=== PATIENT | male | born 1950 | race Caucasian/White ===

== ENCOUNTER → 2016-09-16 | Outpatient (CLI) | payer OTHER ==
--- NOTE | 2016-09-16 10:59 | CT ---
Unenhanced CT Scan of the Chest Clinical History: 65-year-old male who had CT imaging of the neck on September 28, 2015 after sustaini ng a fall and was incidentally noted to have a 7 mm right upper lobe groundglass opacity. There is no prior history of malignancy or tobacco use. Technique: A multidetector unenhanced helical CT scan was obtained from the base of the neck inferior ly to the upper abdomen, reformatted at 1.50 and 4/3 mm increments, and reviewed at a variety of wind ow and level settings. Parasagittal and paracoronal reconstructed images are reviewed on the workstat ion. The DFOV is 37.6 cm. A dose reduction protocol was used. Comparison Study: CT angiography of the neck, which included the lung apices, dated September 28, 2015 . Findings: There has been no significant interval change in the 7 mm groundglass opacity seen in the a nterior right upper lobe on series 4 image 72 and on coronal series 6, image 60. According to Fleisch ner Society guidelines, for solitary pure ground-glass nodules greater than 5 mm (after an initial fo llow up CT at 3 months to confirm persistence), annual surveillance CT for a minimum of 3 years is re commended. There is a subpleural calcified granuloma in the superior segment of the right lower lobe noted on series 4, images 94-96. There are some minor dependent changes seen posteriorly. There is so me nodular subsegmental atelectasis versus scarring in the inferomedial right middle lobe. There is s ome atherosclerotic calcification of the LAD coronary artery. The heart size is normal. The pericardi um is normal. The thoracic aortic contour is normal. The osseous structures are age-appropriate, with no aggressive lesion. The visualized thyroid gland and base of the neck are unremarkable. The visual ized upper abdomen is also unremarkable. Impression: 1. There is a stable 7 mm ground-glass opacity in the right upper lobe. Annual surveillance is recomm ended for 3 years to assure stability, according to current Fleischner Society guidelines. 2. LAD coronary artery calcification. 3. Sequela of old granulomatous disease.
== END ==
LOC: FIMAGING 08:25
PROVIDERS: ATTEND Emergency Medicine
DX: R91.1 Solitary pulmonary nodule (principal); I25.10 Atherosclerotic heart disease of native coronary artery without angina pectoris; D71 Functional disorders of polymorphonuclear neutrophils

== ENCOUNTER 2017-11-23 12:26 | Day surgery (SDC) | payer OTHER ==
--- NOTE | 2017-11-23 12:49 | EDPHY ---
H & P Time Seen by Provider: 11/23/17 12:41 HPI/ROS: CHIEF COMPLAINT: Choked on a dental crown HISTORY OF PRESENT ILLNESS: Patient had a gold crown the came out 1 days ago. He was advised by his dentist to glue it back on and was eating an apple today in started gagging and choking, not sure if he swallowed it or aspirated. REVIEW OF SYSTEMS: Can't feel it in his esophagus sore throat. No vomiting or coughing and not short of breath. PAST MEDICAL HISTORY: Appendectomy, migraines, high cholesterol Social history: Nonsmoker General Appearance: Alert and conversant, cooperative. Alert, normal pharynx. No stridor or drooling. Breath sounds equal, normal voice. Emergency Department course/MDM: Chest x-ray ordered and reviewed with the patient at 1:[address] Shaw at 1:04 p.m., will come and see the patient for bronchoscopy. Soup at 11:00 a.m., banana and an apple at 1:00 p.m. 1315: per Dr. Shaw will do at 1600 due to recent oral intake; in ED until then. Smoking Status: Never smoked Constitutional: Initial Vital Signs Temperature (C) 36.6 C 11/23/17 12:27 Heart Rate 87 11/23/17 12:27 Respiratory Rate 16 11/23/17 12:27 Blood Pressure 135/77 H 11/23/17 12:27 O2 Sat (%) 95 11/23/17 12:27 O2 Delivery Mode Room Air Allergies/Adverse Reactions: No Known Allergies Allergy (Unverified 09/28/15 16:04) Home Medications: Medication Instructions Recorded Gabapentin 11/23/17 MDM/Departure - MDM Imaging Results: Imaging Impressions Chest X-Ray 11/23/17 12:46 Impression: Aspiration of the metallic gold crown into the cephalad aspect of the left lower lobe bronchus. Findings were discussed with PRASANNA AYERS MD at 12:59, on 11/23/2017. Imaging: Discussed imaging studies w/ order desk caller Radiologist, I viewed and interpreted images myself - Depart Disposition: To OP Cath/Surgery Clinical Impression: Foreign body aspiration Qualifiers: Encounter type: initial encounter Qualified Code(s): T17.900A - Unspecified foreign body in respiratory tract, part unspecified causing asphyxiation, initial encounter Condition: Good Referrals: Jinny Fernandez MD [Primary Care Provider] - As per Instructions
[2017-11-23] MEDS ORDERED: LIDOCAINE 2% JELLY 5 ML TUBE ONE (15:31)
[2017-11-23] MEDS ORDERED: LIDOCAINE 1% 300 MG/30 ML SDV ONE (15:32)
[2017-11-23] MEDS ORDERED: MIDAZOLAM 2 MG/2 ML VIAL ONE (15:32)
[2017-11-23] MEDS ORDERED: fentaNYL 100 MCG/2 ML INJ ONE (15:32)
[2017-11-23] MEDS ORDERED: ALBUTEROL 3 ML DEYVIAL ONE (15:38)
[2017-11-23] MEDS ORDERED: LIDOCAINE 4% 5 ML AMP IH ONE (15:45)
--- NOTE | 2017-11-23 16:56 | GCON ---
[f rep st] CONSULTATION EMERGENCY ROOM CHEST CONSULTATION DATE OF CONSULTATION: 11/23/2017 REASON FOR CONSULTATION: Aspiration. HISTORY OF PRESENT ILLNESS: The patient is a very pleasant 67-year-old white male, with past medical history of hypercholesterolemia and migraines. He presented to the emergency room after aspirating a crown. Apparently, it came loose, and patient was advised by the dentist to glue it back on. He w as eating an apple, started gagging and choking, and then subsequently aspirated the crown. Chest x- ray reveals it in the left lower lobe. Patient is currently without complaints. PAST MEDICAL HISTORY: Significant for migraines, hypercholesterolemia. PAST SURGICAL HISTORY: Appendectomy. ALLERGIES: None known to medications. SOCIAL HISTORY: No history of tobacco use. Infrequent alcohol use. FAMILY HISTORY: Noncontributory. REVIEW OF SYSTEMS: Eleven-point review of system was performed and is negative with the exception of what is listed in the HPI. PHYSICAL EXAM: VITAL SIGNS: Blood pressure 133/74, pulse 87, respirations 16, temperature 37.2, oxy gen saturation 95% on room air. General: A well-developed, well-nourished 67-year-old white male, w ho is resting comfortably, in no acute distress. HEENT: Eyes have PERRL, EOMI. Throat shows no agustin thema or tonsillar hypertrophy. NECK: Supple. No cervical adenopathy. HEART: Regular rate and rh ythm without murmurs, rubs, gallops. LUNGS: Diminished breath sounds but no wheeze. ABDOMEN: Soft , nontender. Bowel sounds are present in all 4 quadrants. EXTREMITIES: No clubbing, cyanosis, or e symone. IMAGING: Chest x-ray, dated 11/23/2017, shows aspiration of a metallic crown in the cephalad aspect left lower lobe bronchus. IMPRESSION: Aspiration of a dental crown. PLAN: Perform fiberoptic bronchoscopy for retrieval as soon as possible. /[id number]/MODL
[2017-11-23 17:29] VITALS: BP 99/64
== END 2017-11-23 17:37 | disposition home or self-care (01) ==
LOC: FSGY 16:13
PROVIDERS: ATTEND Internal Medicine Pulmonary Disease
PROC: 0BCB8ZZ Extirpation of Matter from Left Lower Lobe Bronchus, Via Natural or Artificial Opening Endoscopic (ICD-10-PCS; principal; 2017-11-23 16:00)
DX: T17.598A Other foreign object in bronchus causing other injury, initial encounter (principal); E78.00 Pure hypercholesterolemia, unspecified; G43.909 Migraine, unspecified, not intractable, without status migrainosus
CPT/HCPCS: J2250; J3010; J7613